=== PATIENT | male | born 1995 | race Caucasian/White ===

== ENCOUNTER 2020-09-21 21:38 | Emergency (ER) | payer MEDICAID ==
[~2020-09-21] VITALS: Ht 188 cm; Wt 127.0 kg
[2020-09-21 21:49] VITALS: BP 161/91
--- NOTE | 2020-09-21 21:49 | NUR ---
TO BED AMBULATORY
--- NOTE | 2020-09-21 21:58 | NUR ---
24 YO M BIB SELF WITH C/C OF LAC TO L HAND, BETWEEN INDEX AND MIDDLE FINGER AFTER CUTTING A WATERMELON ABOUT 30 MINS AGO. PT COMPLAINS OF THROBBING PAIN 4/10. PT DENIES NUMBNESS AND TINGLING. STATED PAIN WORSENS IF HAND IS UNCLENTCHED. RADIAL PULSES EQUAL/BILAT, SKIN IS WARM TO TOUCH. PT IS SITTING UP IN BED. ALL NEEDS MET AT THIS TIME, BED LOCKED IN LOWEST POSITION. HX: DENIES MED: DENIES NKA
--- NOTE | 2020-09-21 22:05 | NUR ---
EMT AT BEDSIDE.
--- NOTE | 2020-09-21 22:48 | NUR ---
PT IS SITTING UP IN BED. PT DENIES PAIN/DISCOMFORT. ALL NEEDS MET AT THIS TIME. SIDE RAILS X1. BED LOCKED IN LOWEST POSITION.
--- NOTE | 2020-09-21 23:22 | NUR ---
ROSANNE VELÁZQUEZ AT BEDSIDE.
[2020-09-21] MEDS ORDERED: LIDOCAINE MPF 1% 10 MG/ML VIAL INJ ONE (23:30)
[2020-09-21] MEDS ORDERED: BACITRACIN OINT 500 UNITS/GM PKT TP ONE (23:30)
--- NOTE | 2020-09-21 23:44 | NUR ---
ROSANNE GARCIA AT BEDSIDE PERFORMING PROCEDURE.
[2020-09-22] MEDS ORDERED: IBUP-2213 PO (00:07)
--- NOTE | 2020-09-22 00:11 | NUR ---
EMT AT BEDSIDE APPLYING BANDAGE.
[2020-09-22 00:25] VITALS: BP 145/82
== END 2020-09-22 00:25 | disposition home or self-care (01) ==
LOC: MED 21:38
DX: S61.211A Laceration without foreign body of left index finger without damage to nail, initial encounter (principal); S61.213A Laceration without foreign body of left middle finger without damage to nail, initial encounter; X58.XXXA Exposure to other specified factors, initial encounter; Y93.89 Activity, other specified; Y92.89 Other specified places as the place of occurrence of the external cause; Y99.8 Other external cause status
CPT/HCPCS: 12002; 99282; J2001

== ENCOUNTER 2020-10-02 13:50 | Emergency (ER) | payer MEDICAID ==
[~2020-10-02] VITALS: Ht 188 cm; Wt 127.0 kg
[~2020-10-02 13:50] MED LIST: IBUP-2213 PO
[2020-10-02 14:21] VITALS: BP 141/91
--- NOTE | 2020-10-02 14:22 | NUR ---
24 YEAR OLD MALE PRESENTS FOR SUTURE REMOVAL AFTER CUT TO LEFT HAND WITH 7 SUTURES ON September. SITE WITHOUT REDNESS, INFLAMMATION, SUTURES INTACT AND WOUND CLOSED. PT DENIES PAIN. PT AOX4, BREATHING EVEN AND UNLABORED, SKIN WARM AND DRY. BED IN LOWEST POSITION, LOCKED, BED RAIL UPX1. PMH - DENIES ALLERGIES - NKA
[2020-10-02] MEDS ORDERED: BACI1PAC6 TP (14:54)
[2020-10-02] MEDS ORDERED: BACITRACIN OINT 500 UNITS/GM PKT TP ONE ×2 (15:05)
--- NOTE | 2020-10-02 15:12 | NUR ---
APPLIED DRESSING TO LEFT HAND AND 2ND DIGIT WITHOUT ANY ISSUES
[2020-10-02 15:13] VITALS: BP 141/91
--- NOTE | 2020-10-02 15:14 | NUR ---
Patient discharged with v/s stable. Written and verbal after care instructions about suture removal given and explained. Patient alert, oriented and verbalized understanding of instructions. Ambulatory with steady gait. All questions addressed prior to discharge. ID band removed. Patient advised to follow up with PMD. Rx of bacitracin given. Patient educated on indication of medication including possible reaction and side effects. Opportunity to ask questions provided and answered.
== END 2020-10-02 15:14 | disposition home or self-care (01) ==
LOC: MED 13:50
DX: Z48.00 Encounter for change or removal of nonsurgical wound dressing (principal); R03.0 Elevated blood-pressure reading, without diagnosis of hypertension; Z79.899 Other long term (current) drug therapy
CPT/HCPCS: 99282